=== PATIENT | female | born 2000 | race Caucasian/White ===

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

== ENCOUNTER 2019-04-26 10:54 | Emergency (ER) | payer MEDICAID ==
[~2019-04-26] VITALS: Ht 165.1 cm; Wt 63.5 kg
--- NOTE | 2019-04-26 11:11 | NUR ---
TO ED 02, AMBULATORY
[2019-04-26 11:16] VITALS: BP 126/79
--- NOTE | 2019-04-26 11:19 | NUR ---
18/F BIB FAMILY C/O ABSCES L BUTTOCK X 3 DAYS.A PATIENT STATES PAIN OF 9/10 AT THIS TIME. PATIENT POSITIONED FOR COMFORT BEDRAILS UP X1; BED DOWN. ER MD MADE AWARE OF PT STATUS.
--- NOTE | 2019-04-26 11:37 | NUR ---
REPORTED GIVEN TO FERNANDO CHARGE NURSE.
[2019-04-26] MEDS ORDERED: LIDOCAINE MPF 1% 10 MG/ML VIAL INJ ONE (11:45)
[2019-04-26] MEDS ORDERED: MORPHINE SULFATE 4 MG/ML SYR IM ONE (11:45)
[2019-04-26] MEDS ORDERED: ONDANSETRON 4 MG ODT PO ONE (11:45)
--- NOTE | 2019-04-26 12:04 | NUR ---
IM/PO meds given-nadr at this time
--- NOTE | 2019-04-26 12:35 | NUR ---
I&D DONE BY DR VILLALBA. PT TOLERATED PROCEDURE WELL.
--- NOTE | 2019-04-26 12:47 | NUR ---
Patient discharged with v/s stable. Written and verbal after care instructions given and explained. Patient alert, oriented and verbalized understanding of instructions. Ambulatory with steady gait. All questions addressed prior to discharge. ID band removed. Patient advised to follow up with PMD. Rx of NORCO, BACTRIM, KEFLEX& HIBICLEN 4% TOPICAL WINDOW TRIMMER APPRENTICE given. Patient educated on indication of medication including possible reaction and side effects. Opportunity to ask questions provided and answered.
[2019-04-26 12:48] VITALS: BP 119/67
== END 2019-04-26 12:47 | disposition home or self-care (01) ==
LOC: MED 10:54
DX: L02.215 Cutaneous abscess of perineum (principal)
CPT/HCPCS: 56405; 96372; 99284; J2001; J2270; Q0162

== ENCOUNTER 2019-09-01 07:52 | Emergency (ER) | payer MEDICAID ==
[~2019-09-01] VITALS: Ht 165.1 cm; Wt 63.5 kg
[2019-09-01 07:56] VITALS: BP 133/84
--- NOTE | 2019-09-01 08:02 | NUR ---
PT AMB TO BED 12
--- NOTE | 2019-09-01 08:08 | NUR ---
18 YO FEMALE CO ABCESS IN HER COCYX AREA FOR 1 WEEK. WAS SEEN BY PCP AND GIVEN CLINDAMYCIN AND IBUPROFEN. PT STATES THAT THE IBUPROFEN IS NOT HELPING WITH THE PAIN. NO BLEEDING OR DRAINAGE NOTED. NO PMH.
[2019-09-01] MEDS ORDERED: LIDOCAINE 2% 1000 MG/50 ML VIAL INJ ONE (08:30)
[2019-09-01] MEDS ORDERED: KETOROLAC 60 MG/2 ML VIAL IM ONE (09:25)
--- NOTE | 2019-09-01 09:32 | NUR ---
PT CO PAIN. GAVE TORADOL PER MD ORDERS. PT VERY TEARFUL.
[2019-09-01 09:57] VITALS: BP 133/84
--- NOTE | 2019-09-01 09:57 | NUR ---
Patient discharged with v/s stable. Written and verbal after care instructions given and explained. Patient alert, oriented and verbalized understanding of instructions. Ambulatory with steady gait. All questions addressed prior to discharge. ID band removed. Patient advised to follow up with PMD. Rx of KEFLEX, MOTRIN, TRAMADOL AND BACTRIM given. Patient educated on indication of medication including possible reaction and side effects. Opportunity to ask questions provided and answered.
== END 2019-09-01 09:57 | disposition home or self-care (01) ==
LOC: MED 07:52
DX: L05.01 Pilonidal cyst with abscess (principal)
CPT/HCPCS: 10060; 96372; 99283; J1885; J2001

== ENCOUNTER 2019-09-03 14:34 | Emergency (ER) | payer MEDICAID ==
[~2019-09-03] VITALS: Ht 165.1 cm; Wt 63.5 kg
[2019-09-03 14:48] VITALS: BP 130/73
--- NOTE | 2019-09-03 15:03 | NUR ---
PT AMBULATED TO ER BED 12
--- NOTE | 2019-09-03 15:04 | NUR ---
DILLAN CASTRO AT BEDSIDE EVALUATING PT.
--- NOTE | 2019-09-03 15:13 | NUR ---
PT CAME IN FOR WOUND CHECK , PT AOX4 , AFIBRILE , AMBULATORY WITH STEADY GAIT. PMHXS UNREMARKABLE.
[2019-09-03 15:18] VITALS: BP 130/73
== END 2019-09-03 15:19 | disposition home or self-care (01) ==
LOC: MED 14:34
DX: L05.91 Pilonidal cyst without abscess (principal); Z48.00 Encounter for change or removal of nonsurgical wound dressing
CPT/HCPCS: 99283

== ENCOUNTER 2020-09-14 10:17 | Emergency (ER) | payer MEDICAID ==
[~2020-09-14] VITALS: Ht 165.1 cm; Wt 63.5 kg
[2020-09-14 10:34] VITALS: BP 132/84
--- NOTE | 2020-09-14 10:46 | NUR ---
Patient ambulated with steady gait to bed 5.
--- NOTE | 2020-09-14 11:00 | NUR ---
19 YEAR OLD FEMALE COMPLAINS OF ABSCESS ON BUTTOCKS X 2 DAYS. PT STATES REDNESS, SWELLING, BUT NO PUS. PT DENIES FEVER. PT STATES PREVIOUS CYST IN SAME SPOT BEFORE. PT AOX4, BREATHING EVEN AND UNLABORED, SKIN WARM AND DRY. BED IN LOWEST POSITION, LOCKED, BED RAIL UPX1. PMH - CYST ALLERGIES - NKA
[2020-09-14] MEDS ORDERED: LIDOCAINE MPF 1% 5 ML ONE (11:55)
[2020-09-14] MEDS ORDERED: LIDOCAINE 2% 100 MG/5 ML SYR IVP ONE (11:55)
[2020-09-14] MEDS ORDERED: CEPH-588 PO (12:20)
[2020-09-14] MEDS ORDERED: SULF-59 PO (12:21)
[2020-09-14 12:32] VITALS: BP 132/84
--- NOTE | 2020-09-14 12:33 | NUR ---
Patient discharged with v/s stable. Written and verbal after care instructions given and explained. Patient alert, oriented and verbalized understanding of instructions. Ambulatory with steady gait. All questions addressed prior to discharge. ID band removed. Patient advised to follow up with PMD. Rx of KEFLEX AND BACTRIM given. Patient educated on indication of medication including possible reaction and side effects. Opportunity to ask questions provided and answered.
== END 2020-09-14 12:33 | disposition home or self-care (01) ==
LOC: MED 10:17
DX: L02.31 Cutaneous abscess of buttock (principal); F12.90 Cannabis use, unspecified, uncomplicated; Z79.899 Other long term (current) drug therapy
CPT/HCPCS: 10060; 99284; J2001